=== PATIENT | female | born 1960 | race American Indian/Alaskan Native ===

== ENCOUNTER 2016-10-29 11:44 | Emergency (ER) | payer SELFPAY ==
[2016-10-29 14:19] VITALS: BP 119/73
--- NOTE | 2016-10-29 14:58 | Emergency Department Report ---
HPI - General Chief Complaint: Allergic Reaction Time Seen by Provider: 10/29/16 14:46 - HPI HPI: Chief complaint: Allergic reaction HPI: Patient with a history of COPD, sleep apnea, hypertension was getting outpatient CT with IV contrast of the chest when she developed closing of her throat. Patient states she's never had a previous allergic reaction before. Patient was given epinephrine IM, Solu-Medrol and IV Benadryl prior to admission. Patient states she feels much improved and back to normal. Mode of arrival: EMS] Source: [Patient] and nursing notes Began: Prior to admission Duration: See above Context: See above Quality: Pain-free Severity: 0 out of 10 Improved with: See above Worsened with: Nothing Associated signs and symptoms: Denies wheezing, rash, lightheadedness, nausea, vomiting ED Past Medical Hx - Past Medical History Previous Medical History?: Yes Hx Hypertension: Yes Hx COPD: Yes Additional medical history: Sleep apnea - Surgical History Past Surgical History?: No Additional Surgical History: Uvula removal for sleep apnea - Social History Smoking Status: Former Smoker Substance Use Type: None - Medications Home Medications: Home Medications Medication Instructions Recorded Confirmed Last Taken Type Prednisone 10/29/16 Unknown History Spiriva 10/29/16 Unknown History Symbicort 160-4.5 (Nf) 0 mg 10/29/16 Unknown History Ventolin HFA 0 mg 10/29/16 Unknown History ED Review of Systems ROS: Stated complaint: ALLERGIC REACTION Other details as noted in HPI ROS Constitutional: No fever ENT: No uri symptoms Cardiovascular: No chest pain Respiratory: COPD GI: No nausea vomiting or diarrhea : No dysuria frequency or urgency, Skin: No rash Neuro: No focal weakness or numbness Psych: No depression Jabier/lymph: No edema Physical Exam - Physical Exam Vital Signs: Vital Signs 10/29/16 10/29/16 10/29/16 11:42 11:45 11:52 Temperature 97.5 F L Pulse Rate 86 88 Respiratory 27 H 26 H Rate Blood Pressure 132/67 122/71 Blood Pressure [Right] O2 Sat by Pulse 98 98 98 Oximetry 10/29/16 10/29/16 10/29/16 12:01 12:15 12:31 Temperature Pulse Rate 80 79 Respiratory 19 23 22 Rate Blood Pressure 132/67 102/63 102/63 Blood Pressure [Right] O2 Sat by Pulse 97 96 96 Oximetry 10/29/16 10/29/16 10/29/16 12:45 13:01 13:15 Temperature Pulse Rate Respiratory 19 20 22 Rate Blood Pressure 102/63 102/63 102/63 Blood Pressure [Right] O2 Sat by Pulse 96 95 94 Oximetry 10/29/16 10/29/16 10/29/16 13:31 13:45 14:18 Temperature Pulse Rate 86 Respiratory 17 18 18 Rate Blood Pressure 102/63 102/63 Blood Pressure 119/73 [Right] O2 Sat by Pulse 95 97 99 Oximetry Physical Exam: GENERAL: The patient is well-developed well-nourished . HEENT: Normocephalic. Atraumatic. Extraocular motions are intact. Patient has moist mucous membranes. Pharynx without swelling. No uvula. NECK: Supple. No meningitic signs are noted. There is no adenopathy noted. CHEST/LUNGS: Clear to auscultation. There is no respiratory distress noted. HEART/CARDIOVASCULAR: Regular. There is no tachycardia. There is no gallop rub or murmur. ABDOMEN: Abdomen is soft, nontender. Patient has normal bowel sounds. There is no abdominal distention. SKIN: There is no rash. There is no edema. There is no diaphoresis. NEURO: The patient is awake, alert, and oriented. The patient is cooperative. The patient has no focal neurologic deficits. The patient has normal speech. MUSCULOSKELETAL: There is no tenderness or deformity. There is no limitation range of motion. There is no evidence of acute injury. ED Course Vital Signs 10/29/16 10/29/16 10/29/16 11:42 11:45 11:52 Temperature 97.5 F L Pulse Rate 86 88 Respiratory 27 H 26 H Rate Blood Pressure 132/67 122/71 Blood Pressure [Right] O2 Sat by Pulse 98 98 98 Oximetry 10/29/16 10/29/16 10/29/16 12:01 12:15 12:31 Temperature Pulse Rate 80 79 Respiratory 19 23 22 Rate Blood Pressure 132/67 102/63 102/63 Blood Pressure [Right] O2 Sat by Pulse 97 96 96 Oximetry 10/29/16 10/29/16 10/29/16 12:45 13:01 13:15 Temperature Pulse Rate Respiratory 19 20 22 Rate Blood Pressure 102/63 102/63 102/63 Blood Pressure [Right] O2 Sat by Pulse 96 95 94 Oximetry 10/29/16 10/29/16 10/29/16 13:31 13:45 14:18 Temperature Pulse Rate 86 Respiratory 17 18 18 Rate Blood Pressure 102/63 102/63 Blood Pressure 119/73 [Right] O2 Sat by Pulse 95 97 99 Oximetry - Reevaluation(s) Reevaluation #1: 10/29/16 15:00 Patient observed in the emergency department for 3 hours with no recurrence of her symptoms. 10/29/16 15:00 Critical care attestation.: If time is entered above; I have spent that time in minutes in the direct care of this critically ill patient, excluding procedure time. ED Disposition Clinical Impression: Allergic reaction to contrast dye Qualifiers: Encounter type: initial encounter Qualified Code(s): T50.8X5A - Adverse effect of diagnostic agents, initial encounter Disposition: DISCHARGED TO HOME OR SELFCARE Is pt being admited?: No Does the pt Need Aspirin: No Condition: Stable Instructions: Anaphylaxis (ED) Additional Instructions: You can take Benadryl or Zyrtec [id number] as needed. Return to the nearest emergency department if you feel your throat closing up again or develops shortness of breath Referrals: ASHLEE GRAY MD [Primary Care Provider] - 3-5 Days Time of Disposition: 14:53
== END 2016-10-29 17:03 | disposition home or self-care (01) ==
LOC: ED 11:44
DX: T50.8X5A Adverse effect of diagnostic agents, initial encounter (principal); I10 Essential (primary) hypertension; J44.9 Chronic obstructive pulmonary disease, unspecified; Z87.891 Personal history of nicotine dependence
CPT/HCPCS: 99284

== ENCOUNTER 2017-06-01 08:35 | Outpatient (CLI) | payer OTHER ==
--- NOTE | 2017-06-01 10:51 | Mammography Report ---
BILATERAL DIGITAL SCREENING MAMMOGRAM with CAD: 06/01/17 08:35:00 CLINICAL: Routine screening. COMPARISON:04/26/14 FINDINGS: The breasts are heterogeneously dense, which may obscure small masses.A right retroareolar subcentimeter cyst is slightly smaller compared to the prior exam. No mass, architectural distortion or suspicious calcifications. IMPRESSION: No mammographic evidence of malignancy. BI-RADS CATEGORY: 2 - - Benign RECOMMENDATION: Routine mammographic screening in one year. COMMENT: Patient follow-up letters are generated by our [employer] application.
== END 2017-06-01 08:36 | disposition home or self-care (01) ==
LOC: SPVWC 08:35
PROVIDERS: ATTEND Obstetrics & Gynecology
DX: Z12.31 Encounter for screening mammogram for malignant neoplasm of breast (principal)
CPT/HCPCS: 77067; G0202